=== PATIENT | female | born 1990 | race Caucasian/White ===

== ENCOUNTER → 2017-06-30 | Outpatient (CLI) | payer MEDICAID | LOC: FIMAGING 09:31 | PROVIDERS: ATTEND Midwife | DX: Z34.92 Encounter for supervision of normal pregnancy, unspecified, second trimester (principal); Z3A.19 19 weeks gestation of pregnancy ==

== ENCOUNTER → 2017-09-25 | Outpatient (CLI) | payer MEDICAID | LOC: FIMAGING 14:05 | PROVIDERS: ATTEND Midwife | DX: O26.613 Liver and biliary tract disorders in pregnancy, third trimester (principal); Z3A.32 32 weeks gestation of pregnancy ==